=== PATIENT | male | born 1965 | race Hispanic/Latino ===

== ENCOUNTER 2017-02-01 09:00 | Outpatient (RCR) | payer OTHER ==
[2017-02-04] MEDS ORDERED: ELIQUIS PO (14:02)
[2017-02-04] MEDS ORDERED: GLIPIZIDE-METF1 EAC2 PO (14:02)
[2017-02-04] MEDS ORDERED: LEVEMIR100 UNIT/1 SQ (14:03)
[2017-02-04] MEDS ORDERED: METOPROLOL SUCC50 MG PO (14:03)
== END 2017-02-17 ==
LOC: OT 09:00
PROVIDERS: ATTEND Specialist
DX: M77.11 Lateral epicondylitis, right elbow (principal); M25.631 Stiffness of right wrist, not elsewhere classified; M25.821 Other specified joint disorders, right elbow; R53.1 Weakness

== ENCOUNTER → 2017-02-06 | Day surgery (SDC) | payer OTHER ==
[2017-02-04 14:26] LABS: BASOPHILS # (AUTO) 0.1 (0.0-0.1); BASOPHILS % 0.7 % (0.0-1.0); EOSINOPHILS # (AUTO) 0.2 (0.0-0.4); EOSINOPHILS % 2.1 % (0.0-6.0); HEMATOCRIT 45.8 % (38.2-49.6); HEMOGLOBIN 15.3 g/dL (14.0-18.0); LYMPHOCYTES # (AUTO) 2.4 (1.0-3.2); LYMPHOCYTES % 34.3 % (18.0-39.1); MEAN CORPUSCULAR HEMOGLOBIN 26.9 pg (28-32); MEAN CORPUSCULAR HGB CONC 33.4 g/dL (31-35); MEAN CORPUSCULAR VOLUME 80.6 fL (81-99); MONOCYTES # (AUTO) 0.6 (0.2-0.8); MONOCYTES % 8.5 % (4.4-11.3); NEUTROPHILS # (AUTO) 3.8 (2.1-6.9); NEUTROPHILS % 54.3 % (38.7-80.0); PLATELET COUNT 215 x10e3/uL (140-360); RED BLOOD COUNT 5.68 x10e6/uL (4.3-5.7); RED CELL DISTRIBUTION WIDTH 15.1 % (11.7-14.4)
[2017-02-04 14:42] LABS: ANION GAP 13.1 mmol/L (8-16); BLOOD UREA NITROGEN 16 mg/dL (7-26); BUN/CREATININE RATIO 22 (6-25); CALCIUM 9.2 mg/dL (8.4-10.2); CARBON DIOXIDE 28 mmol/L (22-29); CHLORIDE 105 mmol/L (98-107); CREATININE, SERUM 0.72 mg/dL (0.72-1.25); EST GLOMERULAR FILTRATION RATE > 60 ML/MIN (60-); GLUCOSE 183 mg/dL (74-118); POTASSIUM 4.1 mmol/L (3.5-5.1); SODIUM 142 mmol/L (136-145)
[~2017-02-06] MED LIST: BUPIVACAINE HCL 0.5% INJ 30 ML VIAL INJ ONE; CEFAZOLIN SOD 2 GM/D5W 50ML 50 ML IV ONE; ELIQUIS PO; FENTANYL CITRATE/PF 100MCG/2 ML INJ ONE; GLIPIZIDE-METF1 EAC2 PO; LEVEMIR100 UNIT/1 SQ; LIDOCAINE HCL 2% LOCAL INJ 5 ML SDV VIAL INJ ONE; METOPROLOL SUCC50 MG PO; MIDAZOLAM HCL 2 MG/2 ML VIAL ONE; ONDANSETRON HCL INJ 2 MG/ML VIAL IV ONE; PROPOFOL IV EMULSION 10 MG/ML 20 ML VIAL IV ONE; SEVOFLURANE INHAL SOLN 250 ML PEN BTL INH ONE
--- NOTE | 2017-02-07 10:47 | Operative Report ---
DATE OF PROCEDURE: February 06, 2017 PREOPERATIVE DIAGNOSIS: Left carpal tunnel syndrome. POSTOPERATIVE DIAGNOSIS: Left carpal tunnel syndrome. OPERATION/PROCEDURE PERFORMED: Patient underwent a left carpal tunnel release. CONDENSER TESTER: None. ANESTHESIA: General endotracheal intubation anesthesia. IV FLUIDS: Per anesthesia record. BRIEF DESCRIPTION OF OPERATIVE PROCEDURE: Mr. Gibbons was taken to the operating room and placed in supine position on the operating table. Following induction of general anesthesia as well as endotracheal intubation, patient's left upper extremity was examined under anesthesia. He was found to have a normal-appearing hand. The patient's left upper extremity was prepped and draped in a standard surgical fashion. An incision was created in the palm of the hand. This incision was carried through the skin only. Blunt dissection used to deepen the incision to the transverse carpal ligament. The distal edge of the transverse carpal ligament was identified. The transverse carpal ligament was then divided in line with the skin incision. The floor of the carpal canal was evaluated, found to have no abnormalities. Hemostasis was obtained and the wound was closed in a single-layer fashion. Sterile dressings were applied. The patient was then awakened and taken to postanesthesia care unit in stable condition. Job#: [id number] SAK
== END | disposition home or self-care (01) ==
LOC: OR 06:19
PROVIDERS: ATTEND Specialist
DX: G56.02 Carpal tunnel syndrome, left upper limb (principal); G56.01 Carpal tunnel syndrome, right upper limb; G56.22 Lesion of ulnar nerve, left upper limb; G56.21 Lesion of ulnar nerve, right upper limb; M77.11 Lateral epicondylitis, right elbow; M75.21 Bicipital tendinitis, right shoulder; I25.10 Atherosclerotic heart disease of native coronary artery without angina pectoris; I10 Essential (primary) hypertension; E11.9 Type 2 diabetes mellitus without complications; Z01.810 Encounter for preprocedural cardiovascular examination; Z01.812 Encounter for preprocedural laboratory examination; Z79.02 Long term (current) use of antithrombotics/antiplatelets; Z79.4 Long term (current) use of insulin; Z68.31 Body mass index [BMI] 31.0-31.9, adult; Z95.5 Presence of coronary angioplasty implant and graft
CPT/HCPCS: 36415 ×2; 64721; 80048; 82948; 85025; 93005; J2001; J2250; J2405

== ENCOUNTER 2017-02-20 08:06 | Outpatient (RCR) | payer OTHER ==
[~2017-02-20 08:06] MED LIST changes: -BUPIVACAINE HCL 0.5% INJ 30 ML VIAL INJ ONE; -CEFAZOLIN SOD 2 GM/D5W 50ML 50 ML IV ONE; -FENTANYL CITRATE/PF 100MCG/2 ML INJ ONE; -LIDOCAINE HCL 2% LOCAL INJ 5 ML SDV VIAL INJ ONE; -MIDAZOLAM HCL 2 MG/2 ML VIAL ONE; -ONDANSETRON HCL INJ 2 MG/ML VIAL IV ONE; -PROPOFOL IV EMULSION 10 MG/ML 20 ML VIAL IV ONE; -SEVOFLURANE INHAL SOLN 250 ML PEN BTL INH ONE
== END 2017-03-20 ==
LOC: OT 08:06
PROVIDERS: ATTEND Specialist
DX: M77.11 Lateral epicondylitis, right elbow (principal); M25.521 Pain in right elbow; M25.621 Stiffness of right elbow, not elsewhere classified; R53.1 Weakness
CPT/HCPCS: 97139

== ENCOUNTER → 2017-07-17 | Outpatient (CLI) | payer OTHER ==
--- NOTE | 2017-07-17 12:43 | Diagnostic Imaging Report ---
PROCEDURE:X-RAY LEFT HEEL COMPARISON:None. INDICATIONS:LEFT HEEL PAIN FINDINGS: No acute displaced fracture or dislocation. Minimal degenerative plantar calcaneal spur. Atherosclerotic vascular calcifications. Soft tissues unremarkable. CONCLUSION: no acute osseous abnormality. Minimal degenerative plantar calcaneal spur. Dictated by: Zelalem Carson M.D. on 07/17/2017 at 12:45 Electronically approved by: Zelalem Carson M.D. on 07/17/2017 at 12:45
== END ==
LOC: RAD 11:35
PROVIDERS: ATTEND Family Medicine
DX: M79.672 Pain in left foot (principal)

== ENCOUNTER → 2018-04-29 | Day surgery (SDC) | payer OTHER ==
[2018-04-22 11:48] LABS: BASOPHILS % 0.5 % (0.0-1.0); EOSINOPHILS # (AUTO) 0.1 (0.0-0.4); EOSINOPHILS % 1.2 % (0.0-6.0); HEMATOCRIT 44.6 % (38.2-49.6); HEMOGLOBIN 15.1 g/dL (14.0-18.0); LYMPHOCYTES # (AUTO) 2.1 (1.0-3.2); LYMPHOCYTES % 33.2 % (18.0-39.1); MEAN CORPUSCULAR HGB CONC 33.9 g/dL (31-35); MEAN CORPUSCULAR VOLUME 79.8 fL (81-99); MONOCYTES # (AUTO) 0.5 (0.2-0.8); MONOCYTES % 7.9 % (4.4-11.3); NEUTROPHILS # (AUTO) 3.7 (2.1-6.9); NEUTROPHILS % 56.9 % (38.7-80.0); PLATELET COUNT 237 x10e3/uL (140-360); RED BLOOD COUNT 5.59 x10e6/uL (4.3-5.7); RED CELL DISTRIBUTION WIDTH 14.7 % (11.7-14.4)
[2018-04-22 12:18] LABS: ANION GAP 11.4 mmol/L (8-16); BLOOD UREA NITROGEN 17 mg/dL (7-26); BUN/CREATININE RATIO 24 (6-25); CALCIUM 9.5 mg/dL (8.4-10.2); CARBON DIOXIDE 27 mmol/L (22-29); CHLORIDE 103 mmol/L (98-107); CREATININE, SERUM 0.71 mg/dL (0.72-1.25); EST GLOMERULAR FILTRATION RATE > 60 ML/MIN (60-); GLUCOSE 203 mg/dL (74-118); POTASSIUM 4.4 mmol/L (3.5-5.1); SODIUM 137 mmol/L (136-145)
--- NOTE | 2018-04-22 14:32 | Diagnostic Imaging Report ---
EXAM: CHEST 2 VIEWS, PA and lateral DATE: 04/22/2018 Time stamp on exam: 11:50 AM INDICATION: Preoperative for foot surgery COMPARISON: None FINDINGS: LINES/TUBES: None LUNGS: No consolidations or edema. PLEURA: No effusions or pneumothorax. HEART AND MEDIASTINUM: Normal size and contour. BONES AND SOFT TISSUES: No acute findings. Minimal spurring of the thoracic spine. IMPRESSION: No acute thoracic abnormality. Signed by: Dr. Keaton Metz DO on 04/22/2018 1:17 PM
[~2018-04-29] MED LIST changes: +BETAMETHASONE DISODIUM PHOS 6 MG/ML VIAL ONE; +BUPIVACAINE HCL 0.5% INJ 30 ML VIAL INJ ONE; +CEFAZOLIN SOD 1 GM/NS 50ML 50 ML IV ONE; +FENTANYL CITRATE/PF 100MCG/2 ML INJ ONE; +INSULIN REGULAR, HUMAN 100 UNIT/1 ML 3ML VIAL ONE; +LIDOCAINE HCL 1% LOCAL INJ 20 ML VIAL ONE; +LIDOCAINE HCL 2% LOCAL INJ 5 ML SDV VIAL INJ ONE; +MIDAZOLAM HCL 2 MG/2 ML VIAL ONE; +MUPIROCIN 2% OINT 22 GM TUBE ONE; +ONDANSETRON HCL INJ 2MG/ML 2ML 2 MG/ML VIAL ONE; +PROPOFOL IV EMULSION 10 MG/ML 20 ML VIAL ONE; +SEVOFLURANE INHAL SOLN 250 ML PEN BTL ONE
--- OUTSIDE RECORDS SUMMARY | 2018-04-29 05:16 | XMS REPORT | Summary of Care ---
Author Author [facility] Organization [facility] Address Unknown Phone Unavailable Encounter KAY Pérez(RACIEL) [id number] Date(s): 03/09/16 - 03/09/16 [facility] [address] [employer] provided by [facility] [employer] [facility] [place] [address]- Discharge Disposition: Home or Self Care Attending Physician: John Campo MD Referring Physician: John Campo MD Vital Signs Most recent to 1 oldest [Reference Range]: Height 177.8 cm (03/09/16 8:55 AM) Weight 113.636 kg (03/09/16 8:55 AM) Body Mass Index 35.95 m2 (03/09/16 8:55 AM) Problem List Condition Effective Dates Status Health Status Informant Abdominal bloating1, 02/27/10 Active 2 Elevated levels of 03/13/10 Active transaminase & lactic acid dehydrogenase3, 4 Gastroesophageal 03/10/10 Active reflux disease5, 6 Generalized 03/10/10 Active abdominal pain7, 8 Hyperkalemia9, 10 03/22/11 Active Hypertensive 02/27/10 Active newslec86, 12 Liver function tests 05/12/10 Active vdzconuz78 Stomach ceyyjb09, 15 03/10/10 Active Type 2 diabetes 02/27/10 Active gqbojilw95, 17 1Data migrated from [employer] on 09/27/14. 2Data migrated from [employer] on 07/20/14. 3Data migrated from [employer] on 09/27/14. 4Data migrated from [employer] on 07/20/14. 5Data migrated from [employer] on 09/27/14. 6Data migrated from [employer] on 07/20/14. 7Data migrated from [employer] on 09/27/14. 8Data migrated from [employer] on 07/20/14. 9Data migrated from [employer] on 09/27/14. 10Data migrated from [employer] on 07/20/14. 11Data migrated from [employer] on 09/27/14. 12Data migrated from [employer] on 07/20/14. 13Data migrated from [employer] on 07/20/14. 14Data migrated from [employer] on 09/27/14. 15Data migrated from [employer] on 07/20/14. 16Data migrated from [employer] on 09/27/14. 17Data migrated from [employer] on 07/20/14. Allergies, Adverse Reactions, Alerts Substance Reaction Severity Status NKDA Active Medications No data available for this section Results CHEM PANEL Most recent to 1 oldest [Reference Range]: eGFR 125 mL/min/1.73m2 1 *NA* (03/09/16 9:11 AM) POC Creatinine 0.5 mg/dL [0.5-1.4 mg/dL] (03/09/16 9:11 AM) 1Result Comment: The eGFR is calculated using the CKD-EPI formula. In most young, healthy individuals the eGFR will be >90 mL/min/1.73m2. The eGFR declines with age. An eGFR of 60-89 may be normal in some populations, particularly the elderly, for whom the CKD-EPI formula has not been extensively validated. Use of the eGFR is not recommended in the following populations: Individuals with unstable creatinine concentrations, including patients and those with serious co-morbid conditions. Patients with extremes in muscle mass or diet. The data above are obtained from the National Kidney Disease Education Program ( NKDEP) which additionally recommends that when the eGFR is used in patients with extremes of body mass index for purposes of drug dosing, the eGFR should be mul tiplied by the estimated BMI. Immunizations No data available for this section Procedures No data available for this section Social History Social History Type Response Assessment and Plan No data available for this section
--- OUTSIDE RECORDS SUMMARY | 2018-04-29 05:16 | XMS REPORT | Continuity of Care Document ---
Author Author [employer] [facility] Interface Address Unknown Phone Unavailable Problems Problem Status Onset Date Classification Date Reported Comments Source I48.0/I48.3/R00.2 Active 02/21/2016 [facility] CCL/*GEN ANESTHESIA*/EPS PVI/AFLUTTER AB Active 02/21/2016 [facility] PAROXYSMAL AFIB Active 02/21/2016 [facility] 250.00 - DMII WO CMP NT 401.9 - HYPERTEN Active 06/01/2014 [facility] Hyperkalemia<sup>9, 10</sup> Active 03/22/2011 Problem 03/19/2016 Data migrated from [employer] on 07/20/14. [facility] Liver function tests abnormal<sup>13</sup> Active 05/12/2010 Problem 03/19/2016 Data migrated from [employer] on 07/20/14. [facility] Elevated levels of transaminase & lactic acid dehydrogenase<sup>3, 4</sup> Active 03/13/2010 Problem 03/19/2016 Data migrated from [employer] on 07/20/14. [facility] Gastroesophageal reflux disease<sup>5, 6</sup> Active 03/10/2010 Problem 03/19/2016 Data migrated from [employer] on 07/20/14. [facility] Generalized abdominal pain<sup>7, 8</sup> Active 03/10/2010 Problem 03/19/2016 Data migrated from [employer] on 07/20/14. [facility] Stomach cramps<sup>14, 15</sup> Active 03/10/2010 Problem 03/19/2016 Data migrated from [employer] on 07/20/14. [facility] Abdominal bloating<sup>1, 2</sup> Active 02/27/2010 Problem 03/19/2016 Data migrated from [employer] on 07/20/14. [facility] Hypertensive episode<sup>11, 12</sup> Active 02/27/2010 Problem 03/19/2016 Data migrated from [employer] on 07/20/14. [facility] Type 2 diabetes mellitus<sup>16, 17</sup> Active 02/27/2010 Problem 03/19/2016 Data migrated from [employer] on 07/20/14. [facility] Atrial fibrillation and flutter Resolved Problem 03/19/2016 [facility] DM (<span ID="[id number]">Confirmed</span>) Resolved Problem 03/19/2016 [facility] HTN (<span [id number]">Confirmed</span>) Resolved Problem 03/19/2016 [facility] Tarsal tunnel syndrome Active Problem 10/31/2013 Bony Bermudez Stress fracture of bone NEC Active Problem 10/31/2013 Bony Bermudez Pain in limb Active Problem 10/31/2013 Bony Bermudez Contracture of joint of ankle and foot Active Problem 10/31/2013 Bony Bermudez Acquired hammer toe, other than great toe Active Problem 10/31/2013 Bony Bermudez Hypertension NOS Active Problem 10/31/2013 Bony Bermudez Traumatic plantar fasciitis Active Problem 10/31/2013 Bony Lara Tibialis posticus tendinitis Active Problem 10/31/2013 Bony Bermudez Exostosis Active Problem 10/31/2013 Bony Ririestuardo HTN [Hypertension] Active Problem 10/31/2013 Bonyanthony Menezesestuardo Capsulitis Active Problem 10/31/2013 Bony Bermudez Closed fracture of fourth metatarsal bone Active Problem 10/31/2013 Bony Bermudez Soft tissue disorders, unspecified Active Problem 10/31/2013 Bony Bermudez Medications Medication Details Route Status Patient Instructions Ordering Provider Order Date Source pantoprazole 40 mg, 1 tab, Route: PO, Drug form: ECTAB, Daily, Dosing Weight 94.091, kg, Start date: 03/16/16 9:00:00 FLATBED DRIVER, Duration: 14 day, Stop date: 03/29/16 9:00:00 CSTNotes: Tablet should not be chewed or cr ushed. (Same as: Protonix) Inactive 03/16/2016 [facility] Lisinopril 5 mg, 1 tab, Route: PO, Drug form: TAB, Daily, Dosing Weight 94.091, kg, Start date: 03/16/16 9:00:00 FLATBED DRIVER, Duration: 30 day, Stop date: 04/14/16 9:00:00 CSTNotes: (Same as: Prinivil, Zestril) Inactive 03/16/2016 [facility] Propafenone 150 mg, 1 tab, Route: PO, Drug form: TAB, Q8H, Dosing Weight 94.091, kg, Start date: 03/16/16 0:00:00 FLATBED DRIVER, Duration: 30 day, Stop date: 04/14/16 16:00:00 CSTNotes: (Same as: Rythmol) Inactive 03/16/2016 [facility] Saline Flush 0.9% 10 ml, Route: IVP, Drug Form: INJ, Dosing Weight 94.091, kg, Q12H, Start date: 03/15/16 21:00:00 FLATBED DRIVER, Duration: 30 day, Stop date: 04/14/16 9:00:00 CSTNotes: (Same as: BD Posiflush) No Longer Active 03/16/2016 [facility] Sucralfate 1 gm, 1 tab, Route: PO, Drug form: TAB, Q12H, Dosing Weight 94.091, kg, Start date: 03/15/16 21:00:00 FLATBED DRIVER, Duration: 14 day, Stop date: 03/29/16 9:00:00 CSTNotes: May interfere w/enteral feeds - Take 1 hr before or 2 hr after antacids, dairy pdt, meals & minerals - On empty stomach. For patients unable to swallow tablet, dissolve in 10mL - 30mL of water or juice and stir before giving. (Same As: Carafate) No Longer Active 03/16/2016 [facility] Pradaxa 150 mg, 1 cap, Route: PO, Drug form: CAP, Q12H, Dosing Weight 94.091, kg, Start date: 03/15/16 21:00:00 FLATBED DRIVER, Duration: 30 day, Stop date: 04/14/16 9:00:00 CSTNotes: DO NOT break, chew or open capsules for administration. No Longer Active 03/16/2016 [facility] sucralfate 1 g oral tablet 1 gm=1 tab, PO, Q12H, # 60 tab, 0 Refill(s) Active 03/16/2016 [facility] pantoprazole 40 mg oral enteric coated tablet 40 mg=1 tab, PO, Daily, # 30 tab, 0 Refill(s) Active 03/16/2016 [facility] propafenone 150 mg oral tablet 150 mg=1 tab, PO, Q8H, # 360 tab, 3 Refill(s) Active 03/16/2016 [facility] Acetaminophen 300 MG / Codeine Phosphate 30 MG Oral Tablet 1 tab, PO, Q4H, PRN Pain Score 4-6, X 5 day, # 30 tab, 0 Refill(s), given to patient Active 03/16/2016 [facility] Phenergan 12.5 mg, Route: IM, ONCE, Dosing Weight 94.091, kg, Start date: 03/15/16 14:42:00 FLATBED DRIVER, Stop date: 03/15/16 14:42:00 FLATBED DRIVER Inactive 03/15/2016 [facility] Ondansetron 4 mg, 2 mL, Route: IV, Drug form: INJ, Q6H, Dosing Weight 94.091, kg, PRN Nausea, Start date: 03/15/16 14:28:00 FLATBED DRIVER, Duration: 30 day, Stop date: 04/14/16 14:27:00 CSTNotes: (Same as: Zofran) MEDICATION WASTE Product Size: 4 mg Product Wasted: ___ mg No Longer Active 03/15/2016 [facility] Saline Flush 0.9% 10 ml, Route: IVP, Drug Form: INJ, Dosing Weight 94.091, kg, PRN, PRN Line Flush, Start date: 03/15/16 13:32:00 FLATBED DRIVER, Duration: 30 day, Stop date: 04/14/16 13:31:00 CSTNotes: (Same as: BD Posiflush) No Longer Active 03/15/2016 [facility] Morphine 2 mg, 1 mL, Route: IVP, Drug form: INJ, Q15Min, Dosing Weight 94.091, kg, PRN Chest Pain, Start date: 03/15/16 13:32:00 FLATBED DRIVER, Duration: 2 doses or times, Stop date: Limited # of timesNotes: (Same as:M ORPhine Sulfate) No Longer Active 03/15/2016 [facility] acetaminophen-codeine #3 1 tab, Route: PO, Drug Form: TAB, Dosing Weight 94.091, kg, Q4H, PRN Pain Score 4-6, Start date: 03/15/16 13:32:00 FLATBED DRIVER, Duration: 30 day, Stop date: 04/14/16 13:31:00 CSTNotes: Do not exceed 4gm/day of acetaminophen. (Same as: Tylenol with Codeine # 3) No Longer Active 03/15/2016 [facility] lisinopril 5 mg oral tablet 5 mg=1 tab, PO, Daily, # 90 tab, 0 Refill(s) Active 03/15/2016 [facility] dabigatran etexilate 150 MG Oral Capsule [Pradaxa] 150 mg=1 cap, PO, Q12H, # 180 cap, 3 Refill(s) Active 03/15/2016 [facility] sodium chloride 0.9% 1000 ml INJ 1,000 mL 1,000 mL, Rate: 100 ml/hr, Infuse over: 10 hr, Route: IVPB, Dosing Weight 94.091 kg, Total Volume: 1,000, Start date: 03/15/16 6:38:00 FLATBED DRIVER, Duration: 30 day, Stop date: 04/14/16 6:37:00 FLATBED DRIVER No Longer Active 03/15/2016 [facility] Allergies, Adverse Reactions, Alerts Substance Category Reaction Severity Reaction type Status Date Reported Comments Source Immunizations Immunization Date Given Site Status Last Updated Comments Source Results Order Name Results Value Reference Range Date Interpretation Comments Source CHEM PANEL eGFR 116 mL/min/1.73m2 03/16/2016 Result Comment: The eGFR is calculated using the [...] from the National Kidney Disease Education Program (NKDEP) which additionally recommends that when the eGFR is used in patients with extremes of body mass index for purposes of drug dosing, the eGFR should be multiplied by the estimated BMI. [facility] CHEM PANEL Calcium Lvl 7.1 mg/dL 8.5 - 10.5 03/16/2016 [facility] CHEM PANEL CO2 25 meq/L 24 - 32 03/16/2016 [facility] CHEM PANEL AGAP 11.2 meq/L 10.0 - 20.0 03/16/2016 [facility] CHEM PANEL BUN 12 mg/dL 7 - 22 03/16/2016 [facility] CHEM PANEL Sodium Lvl 142 meq/L 135 - 145 03/16/2016 [facility] CHEM PANEL Creatinine Lvl 0.60 mg/dL 0.50 - 1.40 03/16/2016 [facility] CHEM PANEL Chloride Lvl 109 meq/L 95 - 109 03/16/2016 [facility] CHEM PANEL Potassium Lvl 3.2 meq/L 3.5 - 5.1 03/16/2016 [facility] CHEM PANEL Glucose Lvl 185 mg/dL 70 - 99 03/16/2016 [facility] HEMATOLOGY Eosinophils 0.6 % 0.0 - 4.0 03/16/2016 [facility] HEMATOLOGY Segs 68.7 % 45.0 - 75.0 03/16/2016 [facility] HEMATOLOGY Monocytes 9.8 % 2.0 - 12.0 03/16/2016 [facility] HEMATOLOGY Lymphocytes 20.5 % 20.0 - 40.0 03/16/2016 [facility] HEMATOLOGY Segs-Bands # 5.3 K/CMM 1.5 - 8.1 03/16/2016 [facility] HEMATOLOGY Basophils 0.4 % 0.0 - 1.0 03/16/2016 [facility] HEMATOLOGY Lymphocytes # 1.6 K/CMM 1.0 - 5.5 03/16/2016 [facility] HEMATOLOGY Monocytes # 0.8 K/CMM 0.0 - 0.8 03/16/2016 [facility] HEMATOLOGY MCH 26.8 pg 27.0 - 31.0 03/16/2016 [facility] HEMATOLOGY MCV 79.4 fL 80.0 - 94.0 03/16/2016 [facility] HEMATOLOGY Hct 38.4 % 42.0 - 54.0 03/16/2016 [facility] HEMATOLOGY Hgb 13.0 g/dL 14.0 - 18.0 03/16/2016 [facility] HEMATOLOGY MCHC 33.7 g/dL 32.0 - 36.0 03/16/2016 [facility] HEMATOLOGY RDW 14.9 % 11.5 - 14.5 03/16/2016 [facility] HEMATOLOGY RBC 4.84 M/CMM 4.70 - 6.10 03/16/2016 [facility] HEMATOLOGY WBC 7.7 K/CMM 3.7 - 10.4 03/16/2016 [facility] HEMATOLOGY MPV 8.0 fL 7.4 - 10.4 03/16/2016 [facility] HEMATOLOGY Platelet 171 K/CMM 133 - 450 03/16/2016 [facility] HEMATOLOGY POC Activated Clotting Time 135 s 03/15/2016 [facility] BLOOD BANK RESULTS ABO/Rh O POS 03/15/2016 [facility] BLOOD BANK RESULTS Antibody Scrn Negative (03/15/16 6:45 AM) 03/15/2016 [facility] CHEM PANEL Phosphorus 3.6 mg/dL 2.5 - 4.5 03/15/2016 [facility] CHEM PANEL Magnesium Lvl 1.8 mg/dL 1.8 - 2.4 03/15/2016 [facility] CHEM PANEL Glucose Lvl 127 mg/dL 70 - 99 03/15/2016 [facility] CHEM PANEL Potassium Lvl 4.2 meq/L 3.5 - 5.1 03/15/2016 [facility] CHEM PANEL Creatinine Lvl 0.61 mg/dL 0.50 - 1.40 03/15/2016 [facility] CHEM PANEL BUN 15 mg/dL 7 - 22 03/15/2016 [facility] CHEM PANEL Sodium Lvl 138 meq/L 135 - 145 03/15/2016 [facility] CHEM PANEL Chloride Lvl 106 meq/L 95 - 109 03/15/2016 [facility] CHEM PANEL CO2 25 meq/L 24 - 32 03/15/2016 [facility] CHEM PANEL Calcium Lvl 8.5 mg/dL 8.5 - 10.5 03/15/2016 [facility] CHEM PANEL eGFR 116 mL/min/1.73m2 03/15/2016 Result Comment: The eGFR is calculated using the [...] from the National Kidney Disease Education Program (NKDEP) which additionally recommends that when the eGFR is used in patients with extremes of body mass index for purposes of drug dosing, the eGFR should be multiplied by the estimated BMI. [facility] CHEM PANEL AGAP 11.2 meq/L 10.0 - 20.0 03/15/2016 [facility] HEMATOLOGY RDW 14.8 % 11.5 - 14.5 03/15/2016 [facility] HEMATOLOGY Platelet 196 K/CMM 133 - 450 03/15/2016 [facility] HEMATOLOGY MCHC 33.9 g/dL 32.0 - 36.0 03/15/2016 [facility] HEMATOLOGY Hgb 14.7 g/dL 14.0 - 18.0 03/15/2016 [facility] HEMATOLOGY Hct 43.4 % 42.0 - 54.0 03/15/2016 [facility] HEMATOLOGY MCV 79.1 fL 80.0 - 94.0 03/15/2016 [facility] HEMATOLOGY MCH 26.8 pg 27.0 - 31.0 03/15/2016 [facility] HEMATOLOGY WBC 5.3 K/CMM 3.7 - 10.4 03/15/2016 [facility] HEMATOLOGY RBC 5.49 M/CMM 4.70 - 6.10 03/15/2016 [facility] HEMATOLOGY MPV 8.0 fL 7.4 - 10.4 03/15/2016 [facility] HEMATOLOGY PTT 30.1 s 22.9 - 35.8 03/15/2016 [facility] HEMATOLOGY PT 14.3 s 12.0 - 14.7 03/15/2016 [facility] HEMATOLOGY INR 1.09 0.85 - 1.17 03/15/2016 [facility] HEMATOLOGY Monocytes # 0.6 K/CMM 0.0 - 0.8 03/15/2016 [facility] HEMATOLOGY Eosinophils # 0.1 K/CMM 0.0 - 0.5 03/15/2016 [facility] HEMATOLOGY Lymphocytes # 1.6 K/CMM 1.0 - 5.5 03/15/2016 [facility] HEMATOLOGY Eosinophils 2.1 % 0.0 - 4.0 03/15/2016 [facility] HEMATOLOGY Basophils 0.8 % 0.0 - 1.0 03/15/2016 [facility] HEMATOLOGY Segs-Bands # 2.9 K/CMM 1.5 - 8.1 03/15/2016 [facility] HEMATOLOGY Lymphocytes 30.3 % 20.0 - 40.0 03/15/2016 [facility] HEMATOLOGY Segs 56.1 % 45.0 - 75.0 03/15/2016 [facility] HEMATOLOGY Monocytes 10.7 % 2.0 - 12.0 03/15/2016 [facility] CHEM PANEL eGFR 125 mL/min/1.73m2 03/09/2016 Result Comment: The eGFR is calculated using the [...] from the National Kidney Disease Education Program (NKDEP) which additionally recommends that when the eGFR is used in patients with extremes of body mass index for purposes of drug dosing, the eGFR should be multiplied by the estimated BMI. [facility] CHEM PANEL POC Creatinine 0.5 mg/dL 0.5 - 1.4 03/09/2016 [facility] Pulmonary Vein Mapping CT Pulmonary Vein Mapping CT EXAM: CTA CHEST WITH CONTRAST DATE: 03/09/2016 8:53 AM FLATBED DRIVER INDICATION: Chest pain COMPARISON: None TECHNIQUE: Volumetric CT acquisition of the chest according to the pulmonary vein protocol after intravenous contrast. A delayed phase CT was obtained for evaluation of the left atrial appendage. Axial, coronal, sagittal, and axial MIP reconstructions are performed at the acquisition workstation. IV contrast: 100 mL Omnipaque 350 DLP: 2322 mGy-cm FINDINGS: Pulmonary Vein Anatomy: Routine Measurements of the pulmonary veins are as follows: Left superior pulmonary vein: Distance: 20 mm x 13 mm Area: 1.9 cm2 Average diameter: 16 mm Perimeter: 52 mm Left inferior pulmonary vein: Distance: 17 mm x 12 mm Area: 1.5 cm2 Average diameter: 14 mm Perimeter: 46 mm Right inferior pulmonary vein: Distance: 16 mm x 15 mm Area: 1.8 cm2 Average diameter: 15 mm Perimeter: 48 mm Right superior pulmonary vein: Distance: 26 mm x 21 mm Area: 4.0 cm2 Average diameter: 23 mm Perimeter: 73 mm The esophagus comes in closest proximity to the left superior pulmonary vein . Left Atrial Appendage: No thrombus identified. Heart and Mediastinum: No pericardial effusion or significant coronary artery vascular calcifications. No aortic aneurysm or dissection. Lymph Nodes: No suspicious adenopathy. Lungs: No pneumothorax. No pleural effusion. Moderate dependent groundglass opacities extending from the base to the apex. Upper Abdomen: No acute findings. Bones and Soft Tissues: Degenerative changes in the spine. 9 mm sclerotic focus in the manubrium best demonstrated sagittal image 68. No cortical discontinuity identified. IMPRESSION: 1. Pulmonary vein anatomy and measurements are as above. 2. Probable bone island manubrium. 03/09/2016 - - Read by: Trey Claire MD Dictated Date/time: 03/09/16 11:00 Electronically Signed by: Trey Claire MD 03/09/16 11:13 FINAL REPORT [facility] Vital Signs Vital Sign Value Date Comments Source Temperature Oral (F) 99.4 F 03/16/2016 [facility] Systolic (mm Hg) 140 03/16/2016 [facility] Diastolic (mm Hg) 79 03/16/2016 [facility] Systolic (mm Hg) 108 03/16/2016 [facility] Diastolic (mm Hg) 67 03/16/2016 [facility] Systolic (mm Hg) 96 03/16/2016 [facility] Diastolic (mm Hg) 61 03/16/2016 [facility] Respitory Rate 24 03/15/2016 [facility] Respitory Rate 24 03/15/2016 [facility] BMI Calculated 29.76 03/15/2016 [facility] Height 177.8 cm 03/15/2016 [facility] Weight 94.091 03/15/2016 [facility] BMI Calculated 35.95 03/09/2016 [facility] Height 177.8 cm 03/09/2016 [facility] Weight 113.636 03/09/2016 [facility] Temperature Oral (F) 97.4 F 03/26/2013 Bony Bermudez Diastolic (mm Hg) 74 03/26/2013 Bony Bermudez Systolic (mm Hg) 147 03/26/2013 Bony Bermudez Height 70 03/26/2013 Bony Bermudez Weight 220 03/26/2013 Bony Bermudez Heart Rate 73 03/26/2013 Bony Bermudez Encounters Location Location Details Encounter Type Encounter Number Reason For Visit Attending Provider ADM Date DC Date Status Source Bony BermudezDPM Unknown [id number] 04/30/2013 04/30/2013 Bony BermudezDPM Unknown [id number] 04/30/2013 04/30/2013 Bony Bermudez,DPM Unknown [id number] 04/30/2013 04/30/2013 Bony Bermudez,DPM Unknown [id number] 06/03/2013 06/03/2013 Bony BermudezDPM Unknown [id number] 06/03/2013 06/03/2013 Bony Bermudez,DPM Unknown [id number] 10/21/2013 10/21/2013 Bony Bermudez [facility] Outpatient [id number] John Young 03/09/2016 03/10/2016 [facility] Bedded Outpatient [id number] John Young 03/15/2016 03/16/2016 [facility] Procedures Procedure Code Date Perfomer Comments Source
--- OUTSIDE RECORDS SUMMARY | 2018-04-29 05:17 | XMS REPORT ---
Author Author Bony Bermudez Organization [employer] Address Unknown Phone Unavailable Care Team Providers Care Ordnance Artificer Name Role Phone Bony Bermudez CP Unavailable Encounters Encounter Location Date Unknown Bony Bermudez DPM April 30, 2013 Problems Problem Type Condition ICD-9 Code Onset Dates Condition Status Problem Tarsal tunnel syndrome 355.5 Active Problem Stress fracture of bone NEC 733.95 Active Problem Pain in limb 729.5 Active Problem Contracture of joint of ankle and foot 718.47 Active Problem Acquired hammer toe, other than great toe 735.4 Active Problem Hypertension NOS 401.9 Active Problem Traumatic plantar fasciitis 728.71 Active Social History Social History Element Qualifiers Date Reported caffeine yes. Mar 26, 2013 marital status . Mar 26, 2013 exercise yes. Mar 26, 2013 HIV/AIDS Denies. Mar 26, 2013 recreational drug use no. Mar 26, 2013 sexual activity yes. Mar 26, 2013 Smoking Status: . Patient is a: Former Smoker Mar 26, 2013 alcohol no. Mar 26, 2013 travel yes. Mar 26, 2013 occupation Employed. Mar 26, 2013 Vital Signs Date/Time: Mar 26, 2013 Temperature 97.4 F Blood Pressure Diastolic 74 mm Hg Blood Pressure Systolic 147 mm Hg Height 70 inches Weight 220 lbs Cardiac Monitoring Heart Rate 73 Beats per Minute Summary Purpose [employer] Submission
--- OUTSIDE RECORDS SUMMARY | 2018-04-29 05:17 | XMS REPORT ---
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 May 21, 2013 marital status . May 21, 2013 exercise yes. May 21, 2013 HIV/AIDS Denies. May 21, 2013 recreational drug use no. May 21, 2013 sexual activity yes. May 21, 2013 Smoking Status: . Patient is a: Former Smoker May 21, 2013 alcohol no. May 21, 2013 travel yes. May 21, 2013 occupation Employed. May 21, 2013 Summary Purpose [employer] Submission
--- OUTSIDE RECORDS SUMMARY | 2018-04-29 05:17 | XMS REPORT ---
Author Author Bony Bermudez Organization [employer] Address Unknown Phone Unavailable Care Team Providers Care Attendance Clerk Name Role Phone Bony Bermudez Unavailable Encounters Encounter Location Date Unknown Bony Bermudez DPM April 30, 2013 Unknown Bony Bermudez DPM June 03, 2013 Unknown Bony Bermudez DPM Oct 21, 2013 Problems Problem Type Condition ICD-9 Code Onset Dates Condition Status Problem Hypertension NOS 401.9 Active Problem Tarsal tunnel syndrome 355.5 Active Problem Stress fracture of bone NEC 733.95 Active Problem HTN [Hypertension] 401.9 Active Problem Capsulitis 726.90 Active Problem Closed fracture of fourth metatarsal bone 825.25 Active Problem Tibialis posticus tendinitis 726.72 Active Problem Pain in limb 729.5 Active Problem Soft tissue disorders, unspecified 729.90 Active Problem Exostosis 726.91 Active Problem Acquired hammer toe, other than great toe 735.4 Active Problem 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 August 20, 2013 marital status . August 20, 2013 exercise yes. August 20, 2013 HIV/AIDS Denies. August 20, 2013 recreational drug use no. August 20, 2013 sexual activity yes. August 20, 2013 Smoking Status: . Patient is a: Former Smoker August 20, 2013 alcohol no. August 20, 2013 travel yes. August 20, 2013 occupation Employed. August 20, 2013 Summary Purpose [employer] Submission
--- OUTSIDE RECORDS SUMMARY | 2018-04-29 05:17 | XMS REPORT ---
[facility] Address Unknown Phone Unavailable Care Team Providers Care Prepared [employer] Supervisor Name Role Phone SUNI HAIDER Unavailable Unavailable MICHELLE LAU Unavailable Unavailable Problems This patient has no known problems. Allergies, Adverse Reactions, Alerts This patient has no known allergies or adverse reactions. Medications This patient has no known medications. Results Test Description Test Time Test Comments Text Results Atomic Results Result Comments CHEST 2 VIEWS 2018-04-22 13:16:00 [place] [address] Patient Name: KRISSY DAMIAN MR #: [id number] : 1965 Age/Sex: 52/M Req #: [id number] Adm Physician: Ordered by: SUNI HAIDER DPM Report #: [id number] Location: OR Room/Bed: Procedure: [id number] DX/CHEST 2 VIEWS Exam Date: 04/22/18 Exam Time: 1140 REPORT STATUS: Signed EXAM: CHEST 2 VIEWS, PA and lateral DATE: 04/22/2018 Time sta mp on exam: 11:50 AM INDICATION: Preoperative for foot surgery COMPARISON: None FINDINGS: LINES/TUBES: None LUNGS: No consolidations or edema. PLEURA: No effusions or pneumothorax. HEART AND MEDIASTINUM: Normal size and contour. BONES AND SOFT TISSUES: No acute findings. Minimal spurring of the thoracic spine. IMPRESSION: No acute thoracic abnormality. Signed by: Dr. Kush Metz DO on 04/22/2018 1:17 PM Dictated By: KUSH METZ DO 16 Transcribed By: DARIANA on 04/22/181316 COPY TO: SUNI HAIDER DPM HEEL LT [place] [address] Patient Name: KRISSY DAMIAN MR #: [id number] : 1965 Age/Sex: 51/M Req #: [id number] Adm Physician: Ordered by: JUDI KUMARI, MICHELLE Galarza MD Report #: [id number] Location: [facility] Room/Bed: Procedure: [id number] DX/HEEL LT Exam Date: 07/17/17 Exam Time: 1220 REPORT STATUS: Signed PROCEDURE: X-RAY LEFT HEEL COMPARISON: None. INDICATIONS: LEFT HEEL PAIN FINDINGS: No acute displaced fracture or dislocation. Minimal degenerative plantar calcaneal spur. Atherosclerotic vascular calcifications. Soft tissues unremarkable. CONCLUSION: no acute osseous abnormality. Minimal degenerative plantar calcaneal spur. Dictated by: Austin Nash M.D. on 07/17/2017 at 12:45 Electronically approved by: Austin Nash M.D. on 07/17/2017 at 12:45 Dictated By: AUSTIN NASH MD 1245 Transcribed By: MARY on 07/17/17 1245 COPY TO: MICHELLE LAU
--- OUTSIDE RECORDS SUMMARY | 2018-04-29 05:17 | XMS REPORT | Summary of Care ---
Author Author [facility] Organization [facility] Address Unknown Phone Unavailable Encounter KAY Pérez(RACIEL) [id number] Date(s): 03/15/16 - 03/16/16 [facility] [address] [employer] provided by [employer] [facility] [place] [address]- Discharge Disposition: Home or Self Care Attending Physician: John Campo MD Admitting Physician: John Campo MD Referring Physician: John Campo MD Vital Signs 1 2 3 Most recent to oldest [Reference Range]: 177.8 cm (03/15/16 6:36 AM) Height 99.4 DegF *HI* (03/16/16 7:15 AM) Temperature Oral [96.4-99.1 DegF] 140/79 mmHg (03/16/16 7:15 AM) 108/67 mmHg (03/16/16 4:00 AM) 96/61 mmHg (03/16/16 2:00 AM) Blood Pressure [90-140/60-90 mmHg] 24 BRMIN *HI* (03/15/16 3:45 PM) 24 BRMIN *HI* (03/15/16 3:30 PM) 24 BRMIN *HI* (03/15/16 3:30 PM) Respiratory Rate [14-20 BRMIN] 94.091 kg (03/15/16 6:36 AM) Weight 29.76 m2 (03/15/16 6:36 AM) Body Mass Index Problem List Condition Effective Dates Status Health Status Informant Abdominal bloating1, 02/27/10 Active 2 Atrial fibrillation Resolved and flutter(Confirmed) DM (diabetes Resolved mellitus)(Confirmed) Elevated levels of 03/13/10 Active transaminase & lactic acid dehydrogenase3, 4 Gastroesophageal 03/10/10 Active reflux disease5, 6 Generalized 03/10/10 Active abdominal pain7, 8 Hyperkalemia9, 10 03/22/11 Active HTN Resolved (hypertension)(Confi rmed) Hypertensive 02/27/10 Active [id number], 12 Liver function tests 05/12/10 Active [id number] Stomach chwzuh56, 15 03/10/10 Active Type 2 diabetes 02/27/10 Active [id number], 17 1Data migrated from [employer] on [...] Substance Reaction Severity Status NKDA Active Medications acetaminophen-codeine #3 1 tab, Route: PO, Drug Form: TAB, Dosing Weight 94.091, kg, Q4H, PRN Pain Score 4-6, Start date: 03/15/16 13:32:00 FROG CATCHER, Duration: 30 day, Stop date: 04/14/16 13 :31:00 FROG CATCHER Notes: Do not exceed 4gm/day of acetaminophen. (Same as: Tylenol with Codeine # 3) Start Date: 03/15/16 Stop Date: 03/16/16 Status: Discontinued acetaminophen-codeine 300 mg-30 mg oral tablet 1 tab, PO, Q4H, PRN Pain Score 4-6, X 5 day, # 30 tab, 0 Refill(s), given to estephanie ient Start Date: 03/15/16 Stop Date: 03/20/16 Status: Ordered lisinopril 5 mg, 1 tab, Route: PO, Drug form: TAB, Daily, Dosing Weight 94.091, kg, Start d ate: 03/16/16 9:00:00 FROG CATCHER, Duration: 30 day, Stop date: 04/14/16 9:00:00 FROG CATCHER Notes: (Same as: Prinivil, Zestril) Start Date: 03/16/16 Stop Date: 03/16/16 Status: Discontinued lisinopril 5 mg oral tablet 5 mg=1 tab, PO, Daily, # 90 tab, 0 Refill(s) Start Date: 03/15/16 Status: Ordered morphine Sulfate 2 mg, 1 mL, Route: IVP, Drug form: INJ, Q15Min, Dosing Weight 94.091, kg, PRN Ch est Pain, Start date: 03/15/16 13:32:00 FROG CATCHER, Duration: 2 doses or times, Stop da te: Limited # of times Notes: (Same as:MORPhine Sulfate) Start Date: 03/15/16 Stop Date: 03/16/16 Status: Discontinued ondansetron 4 mg, 2 mL, Route: IV, Drug form: INJ, Q6H, Dosing Weight 94.091, kg, PRN Nausea , Start date: 03/15/16 14:28:00 FROG CATCHER, Duration: 30 day, Stop date: 04/14/16 14:27 :00 FROG CATCHER Notes: (Same as: Ace) MEDICATION WASTE Product Size: 4 mgProduct Was tae: ___ mg Start Date: 03/15/16 Stop Date: 03/16/16 Status: Discontinued pantoprazole 40 mg, 1 tab, Route: PO, Drug form: ECTAB, Daily, Dosing Weight 94.091, kg, Star t date: 03/16/16 9:00:00 FROG CATCHER, Duration: 14 day, Stop date: 03/29/16 9:00:00 FROG CATCHER Notes: Tablet should not be chewed or crushed.(Same as: Protonix) Start Date: 03/16/16 Stop Date: 03/16/16 Status: Discontinued pantoprazole 40 mg oral enteric coated tablet 40 mg=1 tab, PO, Daily, # 30 tab, 0 Refill(s) Start Date: 03/15/16 Stop Date: 04/14/16 Status: Ordered Phenergan 12.5 mg, Route: IM, ONCE, Dosing Weight 94.091, kg, Start date: 03/15/16 14:42:0 0 FROG CATCHER, Stop date: 03/15/16 14:42:00 FROG CATCHER Start Date: 03/15/16 Stop Date: 03/15/16 Status: Completed Pradaxa 150 mg, 1 cap, Route: PO, Drug form: CAP, Q12H, Dosing Weight 94.091, kg, Start date: 03/15/16 21:00:00 FROG CATCHER, Duration: 30 day, Stop date: 04/14/16 9:00:00 FROG CATCHER Notes: DO NOT break, chew or open capsules for administration. Start Date: 03/15/16 Stop Date: 03/16/16 Status: Discontinued Pradaxa 150 mg oral capsule 150 mg=1 cap, PO, Q12H, # 180 cap, 3 Refill(s) Start Date: 03/15/16 Status: Ordered propafenone 150 mg, 1 tab, Route: PO, Drug form: TAB, Q8H, Dosing Weight 94.091, kg, Start d ate: 03/16/16 0:00:00 FROG CATCHER, Duration: 30 day, Stop date: 04/14/16 16:00:00 FROG CATCHER Notes: (Same as: Rythmol) Start Date: 03/16/16 Stop Date: 03/16/16 Status: Discontinued propafenone 150 mg oral tablet 150 mg=1 tab, PO, Q8H, # 360 tab, 3 Refill(s) Start Date: 03/15/16 Stop Date: 07/08/17 Status: Ordered Saline Flush 0.9% 10 ml, Route: IVP, Drug Form: INJ, Dosing Weight 94.091, kg, Q12H, Start date: 0 03/15/16 21:00:00 FROG CATCHER, Duration: 30 day, Stop date: 04/14/16 9:00:00 FROG CATCHER Notes: (Same as: BD Posiflush) Start Date: 03/15/16 Stop Date: 03/16/16 Status: Discontinued Saline Flush 0.9% 10 ml, Route: IVP, Drug Form: INJ, Dosing Weight 94.091, kg, PRN, PRN Line Flush , Start date: 03/15/16 13:32:00 FROG CATCHER, Duration: 30 day, Stop date: 04/14/16 13:31 :00 FROG CATCHER Notes: (Same as: BD Posiflush) Start Date: 03/15/16 Stop Date: 03/16/16 Status: Discontinued sodium chloride 0.9% 1000 ml INJ 1,000 mL 1,000 mL, Rate: 100 ml/hr, Infuse over: 10 hr, Route: IVPB, Dosing Weight 94.091 kg, Total Volume: 1,000, Start date: 03/15/16 6:38:00 FROG CATCHER, Duration: 30 day, St op date: 04/14/16 6:37:00 FROG CATCHER Start Date: 03/15/16 Stop Date: 03/16/16 Status: Discontinued sucralfate 1 gm, 1 tab, Route: PO, Drug form: TAB, Q12H, Dosing Weight 94.091, kg, Start da te: 03/15/16 21:00:00 FROG CATCHER, Duration: 14 day, Stop date: 03/29/16 9:00:00 FROG CATCHER Notes: May interfere w/enteral feeds - Take 1 hr before or 2 hr after antacids, dairy pdt, meals & minerals - On empty stomach.For patients unable to swallow tablet, dissolve in 10mL - 30mL of water or juice and stir before giving. (Same As: Carafate) Start Date: 03/15/16 Stop Date: 03/16/16 Status: Discontinued sucralfate 1 g oral tablet 1 gm=1 tab, PO, Q12H, # 60 tab, 0 Refill(s) Start Date: 03/15/16 Stop Date: 04/14/16 Status: Ordered Results BLOOD BANK RESULTS Most recent to 1 2 oldest [Reference Range]: ABO/Rh O POS *Unknown* (03/15/16 6:45 AM) Antibody Scrn Negative (03/15/16 6:45 AM) ELECTROLYTES Most recent to 1 2 oldest [Reference Range]: Sodium Lvl [135-145 142 mEq/L 138 mEq/L mEq/L] (03/16/16 4:32 AM) (03/15/16 6:45 AM) Potassium Lvl 3.2 mEq/L 4.2 mEq/L [3.5-5.1 mEq/L] *LOW* (03/15/16 6:45 AM) (03/16/16 4:32 AM) Chloride Lvl [95-109 109 mEq/L 106 mEq/L mEq/L] (03/16/16 4:32 AM) (03/15/16 6:45 AM) CO2 [24-32 mEq/L] 25 mEq/L 25 mEq/L (03/16/16 4:32 AM) (03/15/16 6:45 AM) AGAP [10.0-20.0 11.2 mEq/L 11.2 mEq/L mEq/L] (03/16/16 4:32 AM) (03/15/16 6:45 AM) CHEM PANEL Most recent to 1 2 oldest [Reference Range]: Creatinine Lvl 0.60 mg/dL 0.61 mg/dL [0.50-1.40 mg/dL] (03/16/16 4:32 AM) (03/15/16 6:45 AM) eGFR 116 mL/min/1.73m2 1 116 mL/min/1.73m2 2 *NA* *NA* (03/16/16 4:32 AM) (03/15/16 6:45 AM) BUN [7-22 mg/dL] 12 mg/dL 15 mg/dL (03/16/16 4:32 AM) (03/15/16 6:45 AM) Glucose Lvl [70-99 185 mg/dL 127 mg/dL mg/dL] *HI* *HI* (03/16/16 4:32 AM) (03/15/16 6:45 AM) Calcium Lvl 7.1 mg/dL 8.5 mg/dL [8.5-10.5 mg/dL] *LOW* (03/15/16 6:45 AM) (03/16/16 4:32 AM) Phosphorus [2.5-4.5 3.6 mg/dL mg/dL] (03/15/16 6:45 AM) Magnesium Lvl 1.8 mg/dL [1.8-2.4 mg/dL] (03/15/16 6:45 AM) 1Result Comment: The eGFR is calculated [...] be mul tiplied by the estimated BMI. 2Result Comment: The eGFR is calculated using the [...] be mul tiplied by the estimated BMI. HEMATOLOGY Most recent to 1 2 oldest [Reference Range]: WBC [3.7-10.4 K/CMM] 7.7 K/CMM 5.3 K/CMM (03/16/16 4:32 AM) (03/15/16 6:45 AM) RBC [4.70-6.10 4.84 M/CMM 5.49 M/CMM M/CMM] (03/16/16 4:32 AM) (03/15/16 6:45 AM) Hgb [14.0-18.0 g/dL] 13.0 g/dL 14.7 g/dL *LOW* (03/15/16 6:45 AM) (03/16/16 4:32 AM) Hct [42.0-54.0 %] 38.4 % 43.4 % *LOW* (03/15/16 6:45 AM) (03/16/16 4:32 AM) MCV [80.0-94.0 fL] 79.4 fL 79.1 fL *LOW* *LOW* (03/16/16 4:32 AM) (03/15/16 6:45 AM) MCH [27.0-31.0 pg] 26.8 pg 26.8 pg *LOW* *LOW* (03/16/16 4:32 AM) (03/15/16 6:45 AM) MCHC [32.0-36.0 33.7 g/dL 33.9 g/dL g/dL] (03/16/16 4:32 AM) (03/15/16 6:45 AM) RDW [11.5-14.5 %] 14.9 % 14.8 % *HI* *HI* (03/16/16 4:32 AM) (03/15/16 6:45 AM) Platelet [133-450 171 K/CMM 196 K/CMM K/CMM] (03/16/16 4:32 AM) (03/15/16 6:45 AM) MPV [7.4-10.4 fL] 8.0 fL 8.0 fL (03/16/16 4:32 AM) (03/15/16 6:45 AM) Segs [45.0-75.0 %] 68.7 % 56.1 % (03/16/16 4:32 AM) (03/15/16 6:45 AM) Lymphocytes 20.5 % 30.3 % [20.0-40.0 %] (03/16/16 4:32 AM) (03/15/16 6:45 AM) Monocytes [2.0-12.0 9.8 % 10.7 % %] (03/16/16 4:32 AM) (03/15/16 6:45 AM) Eosinophils [0.0-4.0 0.6 % 2.1 % %] (03/16/16 4:32 AM) (03/15/16 6:45 AM) Basophils [0.0-1.0 0.4 % 0.8 % %] (03/16/16 4:32 AM) (03/15/16 6:45 AM) Segs-Bands # 5.3 K/CMM 2.9 K/CMM [1.5-8.1 K/CMM] (03/16/16 4:32 AM) (03/15/16 6:45 AM) Lymphocytes # 1.6 K/CMM 1.6 K/CMM [1.0-5.5 K/CMM] (03/16/16 4:32 AM) (03/15/16 6:45 AM) Monocytes # [0.0-0.8 0.8 K/CMM 0.6 K/CMM K/CMM] (03/16/16 4:32 AM) (03/15/16 6:45 AM) Eosinophils # 0.1 K/CMM [0.0-0.5 K/CMM] (03/15/16 6:45 AM) PT [12.0-14.7 14.3 seconds seconds] (03/15/16 6:45 AM) INR [0.85-1.17] 1.09 (03/15/16 6:45 AM) POC Activated 135 seconds Clotting Time *NA* (03/15/16 3:31 PM) PTT [22.9-35.8 30.1 seconds seconds] (03/15/16 6:45 AM) Immunizations No data available for this section Procedures No data available for this section Social History Social History Type Response Smoking Status Never smoker; Ready to change: No; Concerns about tobacco use in household: No; Exposure to Tobacco Smoke None; Cigarette Smoking Last 365 Days No; Reg Smoking Cessation Counseling No Assessment and Plan No data available for this section
[2018-04-29 09:25] VITALS: BP 134/83
--- NOTE | 2018-04-29 11:09 | Diagnostic Imaging Report ---
Left foot radiographs-2 views. HISTORY: Status post surgery. COMPARISON: None FINDINGS: Overlying cast and portal technique limit evaluation. There has been first metatarsal osteotomy. There is a screw and a small K wire which transfix the first metatarsal head. There is K wire fixation across the fourth toe from the distal through the proximal phalanges. No evidence of acute displaced fracture or malalignment. Line, presumably extrinsic, overlies the palmar foot and terminates overlying the calcaneous. There is a small plantar calcaneal spur. IMPRESSION: Postsurgical changes of the left foot as above. Signed by: Dr. Sammie Hunter MD on 04/29/2018 11:06 AM
--- NOTE | 2018-04-29 16:41 | Operative Report ---
DATE OF PROCEDURE: 04/29/2018 SURGEON: Tremaine Canseco DPM PREOPERATIVE DIAGNOSES: 1. Painful hallux valgus deformity, left foot. 2. Painful contracted hammertoe fourth digit, left. 3. Painful contracted hammertoe fifth digit, left. 4. Painful plantar calcaneal heel spur, left foot. 5. Tarsal tunnel syndrome, left foot. POSTOPERATIVE DIAGNOSES: 1. Painful hallux valgus deformity, left foot. 2. Painful contracted hammertoe fourth digit, left. 3. Painful contracted hammertoe fifth digit, left. 4. Painful plantar calcaneal heel spur, left foot. 5. Tarsal tunnel syndrome, left foot. OPERATIVE PROCEDURES: 1. Etienne bunionectomy with screw fixation, left foot. 2. Arthroplasty of fourth digit with K-wire fixation of the fourth digit, left. 3. Arthroplasty of fifth digit with K-wire fixation of the fourth digit, left. 4. Resection of plantar calcaneal heel spur, left foot. 5. Neurolysis of tibial nerve, left foot. 6. Neurolysis of medial plantar nerve, left foot. 7. Neurolysis of lateral plantar nerve, left foot. 8. Intraoperative use of fluoroscopy. 9. Trigger point shot of cortisone. 10. Application of posterior splint. ANESTHESIA: General. HEMOSTASIS: Pneumatic thigh tourniquet at 350 mmHg. PROCEDURE IN DETAIL: The patient was taken into the operating room and placed on the operating table in supine position. Following induction of general anesthesia by the anesthesiologist, Webril wraps were placed on the patient's left thigh followed by application of a left thigh tourniquet. The left lower extremity was then prepped and draped in the usual aseptic manner and following procedures were then performed. PROCEDURE #1: Etienne bunionectomy with screw fixation of left foot. Attention was directed to the dorsal medial aspect of the first MPJ, where a 6 cm linear incision was performed. Incision was deepened down to the joint capsule. Longitudinal capsulotomy was then performed exposing the dorsomedial exostosis of the first metatarsal head. Using oscillating saw, dorsal medial exostosis was excised from the operation site in toto. A V-osteotomy was then performed from medial to lateral. Capital fragment was then transpositioned laterally. Upon adequate surgical and anatomical reduction utilizing proper AO technique and 2.0 x 16 mm cortical screw in conjunction with a bur, 0.045 K-wire was used to achieve stability of osteotomy site. Redundant bone medially was excised via the use of an oscillating saw and rotating bur. PROCEDURES #2 AND #3: Arthroplasty of fourth and fifth digits with K-wire fixation of the fourth. Attention was then directed to the dorsal aspect of the above-mentioned toes overlying the proximal interphalangeal joint, where a 3 cm linear incision was performed. Incision was deepened down to the joint capsule. Transverse capsulotomy was then performed exposing the head of the proximal phalanx. Using oscillating saw, head of the proximal phalanx was excised from the operation site in toto. All roughened bony edges were rasped smooth. The fourth toe was still noted to be contracted, so a 0.045 K-wire was introduced up to metatarsophalangeal joint to achieve proper anatomical reduction. PROCEDURE #4: Resection of plantar calcaneal heel spur, left foot. Attention was then directed to the medial aspect of the left heel, where a 6-7 cm linear incision was performed. Incision was deepened down to the plantar fascia level. Plantar fascia was then clearly visualized. The medial one half of the plantar fascia was cut from its insertion site. The plantar calcaneal spur was then visualized. Via the use of a reciprocating bur, the spur was smoothed down and resected. PROCEDURES #5, #6, AND #7: Neurolysis of tibial nerve, neurolysis of medial plantar nerve, and neurolysis of lateral plantar nerve. Attention was then directed to the tarsal canal of the left lower extremity, where a curvilinear incision was performed posterior to the medial malleolus. The incision was deepened via sharp and blunt dissection being careful to retract any vital structures and ligate any superficial vessels. Utilizing meticulous dissection with the Metzenbaum scissors, the flexor retinaculum was then cut. The tibial nerve was then released from any adhesions via use of an umbilical tape. The incision was then deepened into the estrella pedis and the neurolysis of the medial, lateral, and plantar nerve was done where the adhesions surrounding the nerves were dissected free utilizing blunt dissection. All areas were then copiously flushed with sterile antibiotic solution suction. PROCEDURE #8: Intraoperative use of fluoroscopy was then used to make sure proper alignment and fixation was achieved with adequate amount of resection of plantar calcaneal spur. Closure was then obtained utilizing 3-0 Vicryl, 4-0 Vicryl, and 4-0 nylon for capsule, subcutaneous tissue, and skin respectively after properly and copiously flushing the area with saline. PROCEDURE #9: Trigger point shot of cortisone was then given to the first and fourth interspace of the left foot, approximately 15 mL of 0.5% plain Marcaine plus 10 mL of 1% Xylocaine plain were then used to achieve local anesthesia of above-mentioned surgical area. Sterile dressing was applied. Upon release of thigh tourniquet, blood hyperemia was noted immediately to all digits of the patient's left foot. PROCEDURE #10: Application of posterior splint. A properly placed posterior splint was then applied keeping the foot at 90 degrees with respect to the leg to try and prevent any postop complications. The patient was then transferred from the OR to recovery room with vital signs stable and neurovascular status intact. No intraoperative complications were encountered. Blood loss from the surgery was minimal. The patient to remain nonweightbearing with the aid of crutches, keep his foot elevated, and to apply an ice pack to the ankle joint area. NICK Orozco/MADAY /[id number]
== END | disposition home or self-care (01) ==
LOC: OR 05:13
PROVIDERS: ATTEND Podiatrist Foot Surgery
DX: M20.12 Hallux valgus (acquired), left foot (principal); M20.42 Other hammer toe(s) (acquired), left foot; M77.32 Calcaneal spur, left foot; G57.52 Tarsal tunnel syndrome, left lower limb; G58.8 Other specified mononeuropathies; I10 Essential (primary) hypertension; E11.9 Type 2 diabetes mellitus without complications; R00.1 Bradycardia, unspecified; F41.9 Anxiety disorder, unspecified; Z01.810 Encounter for preprocedural cardiovascular examination; Z01.812 Encounter for preprocedural laboratory examination; Z01.811 Encounter for preprocedural respiratory examination
CPT/HCPCS: 28035; 28119; 28285 ×2; 28296; 36415 ×2; 64704 ×3; 71046; 73620; 80048; 82948; 85025; 93005; C1713; J0690; J0720; J2001 ×2; J2250; J2405; J2704

== ENCOUNTER → 2018-12-26 | Outpatient (CLI) | payer OTHER ==
[~2018-12-26] MED LIST changes: -BETAMETHASONE DISODIUM PHOS 6 MG/ML VIAL ONE; -BUPIVACAINE HCL 0.5% INJ 30 ML VIAL INJ ONE; -CEFAZOLIN SOD 1 GM/NS 50ML 50 ML IV ONE; -FENTANYL CITRATE/PF 100MCG/2 ML INJ ONE; -INSULIN REGULAR, HUMAN 100 UNIT/1 ML 3ML VIAL ONE; -LIDOCAINE HCL 1% LOCAL INJ 20 ML VIAL ONE; -LIDOCAINE HCL 2% LOCAL INJ 5 ML SDV VIAL INJ ONE; -MIDAZOLAM HCL 2 MG/2 ML VIAL ONE; -MUPIROCIN 2% OINT 22 GM TUBE ONE; -ONDANSETRON HCL INJ 2MG/ML 2ML 2 MG/ML VIAL ONE; -PROPOFOL IV EMULSION 10 MG/ML 20 ML VIAL ONE; -SEVOFLURANE INHAL SOLN 250 ML PEN BTL ONE
--- NOTE | 2018-12-26 13:31 | Diagnostic Imaging Report ---
EXAMINATION: SP LUMBAR, COMPLETE MIN 4VW INDICATION: Back pain COMPARISON: None FINDINGS: AP, lateral and oblique images of the lumbar spine were obtained. No compression fracture. Vertebral body heights are maintained. Alignment is anatomic. Minimal multilevel degenerative changes with small osteophyte formation. IMPRESSION: No acute osseous injury. Anatomic alignment of the lumbar spine with minimal degenerative changes. Signed by: Lesli Prather MD on 12/26/2018 1:28 PM
== END ==
LOC: RAD 12:48
PROVIDERS: ATTEND Family Medicine
DX: M54.5 Low back pain (principal)
CPT/HCPCS: 72110